=== PATIENT | female | born 1995 | race Caucasian/White ===

== ENCOUNTER → 2019-09-14 10:20 | Outpatient (BNVA) | payer OTHER, SELFPAY | PROVIDERS: Family Provider Family Medicine; PCP Orthopaedic Surgery; Referring Provider Family Medicine; Visit Provider Otolaryngology | DX: J32.9 Chronic sinusitis, unspecified (principal); J34.2 Deviated nasal septum; J34.3 Hypertrophy of nasal turbinates | CPT/HCPCS: 96372; 99214; J3301 ==

== ENCOUNTER 2019-09-14 12:25 | Outpatient (CLI) | payer OTHER, SELFPAY ==
--- NOTE | 2019-09-14 12:00 | CT_ITS ---
WS: [id number] CT PARANASAL SINUSES HISTORY: Sinusitis TECHNIQUE: Contiguous 2.5 mm axial images obtained through the sinuses. Images are reconstructed in s agittal and coronal planes. All CT scans at [facility] use at least one of these dose opt imization techniques: automated exposure control; mA and/or kV adjustment per patient size (includes targeted exams where dose is matched to clinical indication); or iterative reconstruction. DLP: 524.63 mGy.cm COMPARISON: None available. Frontal sinuses: Normal. Sphenoid sinus: Normal. Ethmoid sinuses: Mucoperiosteal thickening is mild bilaterally. Maxillary sinus: Partial bony septa present extending obliquely through the sinus cavities. No air-fl uid levels. RIGHT maxillary antrum is mildly hypoplastic. Ostiomeatal unit: The RIGHT ostiomeatal unit is slightly narrowed by the oblique septum extending int o the maxillary sinus and there is a small amount of increased soft tissue along the uncinate process . LEFT ostiomeatal unit is patent. Moderate RIGHT deviation of the nasal septum with a 5 mm bony spur extending to the RIGHT. [place] l middle turbinates. Small bilateral cervical chain lymph nodes are identified. Orbits and globes are negative. CT/CT sinus wo con* [id number] IMPRESSION: 1. Mild ethmoid sinus disease. 2. Partially obstructed RIGHT ostiomeatal unit by an oblique bony septum exten ding through the maxillary sinus. 3. Moderate RIGHT nasal septum deviation with 5 mm bony spur.
== END 2019-09-14 12:26 | disposition home or self-care (01) ==
LOC: RAD 12:28
PROVIDERS: Family Provider Family Medicine; PCP Orthopaedic Surgery; Visit Provider Otolaryngology
DX: J32.9 Chronic sinusitis, unspecified (principal); J34.89 Other specified disorders of nose and nasal sinuses
CPT/HCPCS: 70486

== ENCOUNTER → 2019-09-27 11:07 | Outpatient (BNVA) | payer OTHER, SELFPAY | PROVIDERS: Family Provider Family Medicine; PCP Orthopaedic Surgery; Visit Provider Otolaryngology | DX: J34.2 Deviated nasal septum (principal); J34.3 Hypertrophy of nasal turbinates; J32.9 Chronic sinusitis, unspecified | CPT/HCPCS: 99213; 99214 ==

== ENCOUNTER → 2020-06-19 08:59 | Outpatient (BNVA) | payer OTHER, SELFPAY | PROVIDERS: Family Provider Family Medicine; Visit Provider Internal Medicine | DX: D50.9 Iron deficiency anemia, unspecified (principal); E03.9 Hypothyroidism, unspecified; E66.01 Morbid (severe) obesity due to excess calories; Z68.42 Body mass index [BMI] 45.0-49.9, adult | CPT/HCPCS: 99204 ==

== ENCOUNTER → 2020-08-08 14:54 | Outpatient (BNVA) | payer OTHER, SELFPAY | PROVIDERS: Family Provider Family Medicine; PCP Family Medicine; Visit Provider Internal Medicine | DX: E03.8 Other specified hypothyroidism (principal) | CPT/HCPCS: 84146; 84439; 84443; 86376 ==

== ENCOUNTER → 2021-03-10 15:12 | Outpatient (BNVA) | payer OTHER, SELFPAY | PROVIDERS: Family Provider Family Medicine; PCP Family Medicine; Visit Provider Nurse Practitioner | DX: U07.1 COVID-19 (principal) | CPT/HCPCS: 87635 ==

== ENCOUNTER 2021-03-14 07:30 | Outpatient (CLI) | payer OTHER, SELFPAY ==
[2021-03-14 08:05] VITALS: BP 153/106; PULSE 87; RESP 16; TEMP 36.6; O2SAT 100
[2021-03-14 08:25] VITALS: BP 122/83; PULSE 83; RESP 16; TEMP 36.6; O2SAT 99
[2021-03-14 09:21] VITALS: BP 137/89; PULSE 85; RESP 16; TEMP 36.5; O2SAT 99
== END 2021-03-14 09:27 | disposition home or self-care (01) ==
PROVIDERS: PCP Family Medicine; Visit Provider Family Medicine
DX: U07.1 COVID-19 (principal)
CPT/HCPCS: 96365

== ENCOUNTER → 2021-04-17 15:49 | Outpatient (BNVA) | payer OTHER, SELFPAY | PROVIDERS: PCP Family Medicine; Visit Provider Family Medicine | DX: R07.9 Chest pain, unspecified (principal) | CPT/HCPCS: 85379 ==

== ENCOUNTER 2022-01-17 08:10 | Outpatient (CLI) | payer OTHER, SELFPAY ==
[2022-01-17 09:05] LABS: Alanine Aminotransferase 38 U/L (0-33); Albumin Level 4.7 g/dL (3.5-5.2); Alkaline Phosphatase 53 IU/L (35-105); Anion Gap 18.2 (5-19); Aspartate Amino Transferase 33 U/L (0-32); Blood Urea Nitrogen 9 mg/dL (6-20); Calcium 9.6 mg/dL (8.5-10.5); Carbon Dioxide 24 mmol/L (22-29); Chloride 98 mmol/L (98-107); Globulin 3.2 g/dL (1.3-4.6); Glomerular Filtration Rate 146.9 mL/min (90-130); Glucose 84 mg/dL (65-115); Lipase 23 U/L (13-60); Osmolality Calculated 280 mOsm/kg (285-295); Potassium 4.2 mmol/L (3.5-5.1); Sodium 136 mmol/L (136-145); Thyroid Stimulating Hormone 2.04 uIU/mL (0.27-4.20); Total Bilirubin 0.4 mg/dL (0.15-1.2); Total Protein 7.9 g/dL (6.6-8.7)
[2022-01-18 09:57] LABS: T4 Total 9.7 mcg/dL (5.1-11.9)
== END 2022-01-17 08:11 | disposition home or self-care (01) ==
PROVIDERS: PCP Family Medicine; Visit Provider Family Medicine
DX: Z13.220 Encounter for screening for lipoid disorders (principal)
CPT/HCPCS: 36415; 80053; 83690; 84436; 84443

== ENCOUNTER 2022-03-12 12:00 | Outpatient (CLI) | payer OTHER, SELFPAY | END 2022-03-12 12:01 | disposition home or self-care (01) | LOC: SLEEP 03-17 09:59 | PROVIDERS: PCP Family Medicine; Visit Provider Internal Medicine Cardiovascular Disease | DX: G47.10 Hypersomnia, unspecified (principal) | CPT/HCPCS: G0399 ==

== ENCOUNTER → 2022-09-04 13:42 | Outpatient (BNVA) | payer OTHER, SELFPAY | PROVIDERS: PCP Family Medicine; Visit Provider Family Medicine | DX: E03.9 Hypothyroidism, unspecified (principal); Z51.81 Encounter for therapeutic drug level monitoring | CPT/HCPCS: 80053; 84439; 84443; 85025 ==

== ENCOUNTER → 2022-10-17 12:51 | Outpatient (BNVA) | payer OTHER, SELFPAY | PROVIDERS: PCP Family Medicine; Visit Provider Family Medicine | DX: Z01.419 Encounter for gynecological examination (general) (routine) without abnormal findings (principal) | CPT/HCPCS: 87624 ==

== ENCOUNTER → 2023-01-29 15:50 | Outpatient (BNVA) | payer OTHER, SELFPAY | PROVIDERS: PCP Family Medicine; Visit Provider Internal Medicine | DX: R07.9 Chest pain, unspecified (principal) | CPT/HCPCS: 93005 ==

== ENCOUNTER → 2023-02-02 11:53 | Outpatient (BNVA) | payer OTHER, SELFPAY | PROVIDERS: PCP Family Medicine; Visit Provider Family Medicine | DX: E03.9 Hypothyroidism, unspecified (principal); E11.9 Type 2 diabetes mellitus without complications; Z51.81 Encounter for therapeutic drug level monitoring | CPT/HCPCS: 80053; 83036; 84439; 84443; 85025 ==

== ENCOUNTER 2023-06-09 14:40 | Outpatient (CLI) | payer OTHER, SELFPAY ==
--- NOTE | 2023-06-09 14:47 | XRR_ITS ---
PROCEDURE INFORMATION: Exam: XR Chest Exam date and time: 06/09/2023 3:01 PM Age: 28 years old Clinical indication: Pain; Angina pectoris; Additional info: Chest pain. No history of trauma or recent surgery is provided. TECHNIQUE: Imaging protocol: Radiologic exam of the chest. 2image(s) are provided. Views: 2 views. COMPARISON: CR XR chest 2V* [id number] 06/17/2019 11:33 PM FINDINGS: Lungs: The lung volumes are slightly low which may exaggerate the central and bronchial markings. No lobar consolidation is appreciated. Pleural spaces: No pneumothorax or significant pleural effusion is appreciated. Heart/Mediastinum: The cardiomediastinal silhouette is upper normal in size.This can be seen with central averaging as well as krista enlargement.No cardiac decompensation is appreciated. This appears slightly increased can also be seen with cardiomegaly and/or pericardial fluid. Diaphragm: There is slight asymmetric right hemidiaphragm elevation. Bones/joints: Osseous alignment is maintained.No interval displaced fracture or dislocation is appreciated. Soft tissues: No radiopaque foreign body or subcutaneous emphysema is appreciated. Other findings: No other significant interval changes are appreciated. XR/XR chest 2V* [id number] IMPRESSION: 1. No interval lobar consolidation or cardiac decompensation is appreciated. The lung volumes are slightly low however which may exaggerate the basilar bronchovascular markings. Some atelectasis as well as early peribronchial inflammation could also present in this fashion. 2. The cardiac silhouette appears slightly larger in the interval. This can also be seen with some cardiac chamber enlargement as well as pericardial fluid. If there are associated clinical findings, consider echocardiography.
== END 2023-06-09 14:41 | disposition home or self-care (01) ==
PROVIDERS: PCP Family Medicine; Visit Provider Family Medicine
DX: R07.9 Chest pain, unspecified (principal)
CPT/HCPCS: 71046

== ENCOUNTER → 2023-06-17 10:22 | Outpatient (BNVA) | payer OTHER, SELFPAY | PROVIDERS: PCP Family Medicine; Visit Provider Family Medicine | DX: E03.9 Hypothyroidism, unspecified (principal); M25.50 Pain in unspecified joint; Z51.81 Encounter for therapeutic drug level monitoring | CPT/HCPCS: 80053; 84439; 84443; 85025; 85651; 86038; 86141; 86618; 86666; 86757 ==

== ENCOUNTER 2023-06-19 07:31 | Outpatient (CLI) | payer OTHER, SELFPAY ==
--- NOTE | 2023-06-19 07:30 | USCV_ITS ---
Ariadne Mahmood Age: 28 Gender: F : 1995 Exam Date: 06/19/2023 08:01 Ordering Phys: Lui Kapoor MD Technologist: Viral Rouse Exam Location: [facility] – [place] Indication: chest pain BP: 112 / 74 HR: 65 Rhythm: Sinus Technical Quality: Adequate MEASUREMENTS (Male / Female) Normal Values 2D ECHO LVOT Diameter 2.0 cm LV Ejection Fraction MOD 2C 57.9 % LV Ejection Fraction 2C AL 58.3 % LA Diameter 4.3 cm LA Width 4.4 cm LA Height 5.0 cm RA Width 3.5 cm RA Height 4.6 cm Aorta at Sinotubular Diameter 2.2 cm IVC Diameter 1.8 cm M-MODE Aortic Annulus Diameter 2.7 cm LA Ao Ratio MM 1.5 MV E Point Septal Separation 0.7 cm DOPPLER AV Peak Velocity 117.0 cm/s LVOT Peak Velocity 82.0 cm/s AV Area Cont Eq vti 2.1 cm squared AV Area Cont Eq pk 2.2 cm squared MV Peak Velocity 108.0 cm/s MV Area PHT 4.5 cm squared Mitral E to A Ratio 0.8 MV E' Velocity 37.5 cm/s Mitral E to MV E' Ratio 4.5 Mitral E to LV E' Lateral Ratio 4.9 Mitral E to LV E' Septal Ratio 4.2 TR Peak Velocity 243.0 cm/s TR Peak Gradient 23.6 mmHg TR Mean Velocity 193.4 cm/s TR Mean Gradient 16.7 mmHg TR Velocity Time Integral 55.1 cm Right Atrial Pressure 3.0 mmHg Pulmonary Artery Systolic Pressu 26.6 mmHg PV Peak Velocity 135.7 cm/s RV Acceleration Time 0.1 s RV Ejection Time 0.3 s RV AcT/ET 0.5 FINDINGS Left Ventricle Normal left ventricular size, systolic function and wall thickness, with no regional wall motion abnormalities. Estimated ejection fraction 55 to 60%. Normal left ventricular wall thickness. Normal diastolic filling pattern. Right Ventricle The right ventricle is normal in size and function. Right Atrium The right atrium is normal in size. Left Atrium The left atrium is normal in size. Mitral Valve Structurally normal mitral valve without significant stenosis or prolapse. There is trivial mitral regurgitation. Aortic Valve Structurally normal aortic valve without significant sclerosis or stenosis. There is no aortic regurgitation. Tricuspid Valve Structurally normal tricuspid valve without significant stenosis. Mild regurgitation. Pulmonary artery systolic pressure is normal. Pulmonic Valve Structurally normal pulmonic valve without significant stenosis. There is no pulmonic regurgitation. Pericardium Normal pericardium without effusion. Aorta Normal ascending aorta dimension. IVC The inferior vena cava appears normal. CONCLUSIONS Fahad Hastings MD (Electronically Signed) Final Date: 19 June 2023 09:31 S
== END 2023-06-19 07:32 | disposition home or self-care (01) ==
PROVIDERS: PCP Family Medicine; Visit Provider Family Medicine
DX: I51.7 Cardiomegaly (principal); R07.9 Chest pain, unspecified
CPT/HCPCS: 93306

== ENCOUNTER → 2023-07-10 08:34 | Outpatient (BNVA) | payer OTHER, SELFPAY | PROVIDERS: PCP Family Medicine; Visit Provider Family Medicine | DX: Z13.220 Encounter for screening for lipoid disorders (principal) | CPT/HCPCS: 80061 ==

== ENCOUNTER 2024-01-04 09:14 | Emergency (ER) | payer OTHER, SELFPAY ==
[2024-01-04 09:35] VITALS: BP 191/111; PULSE 71; RESP 16; TEMP 36.7; O2SAT 98
[2024-01-04 09:44] LABS: Basophils # 0.1 10^3/uL (0.0-0.1); Basophils % 0.6 %; Eosinophils # 0.5 10^3/uL (0.0-0.8); Eosinophils % 4.2 %; Hematocrit 42.6 % (36-47); Lymphocytes # 2.2 10^3/uL (0.8-4.8); Lymphocytes % 19.8 %; Mean Corpuscular HGB Conc 31.2 g/dL (30-55); Mean Corpuscular Hemoglobin 25.1 pg (27-33); Mean Corpuscular Volume 80.5 fl (85-98); Mean Platelet Volume 9.4 fL (7.4-10.4); Monocytes # 0.7 10^3/uL (0.2-0.9); Monocytes % 6.7 %; Neutrophils # 7.54 10^3/uL (1.8-7.7); Neutrophils % 67.8 %; Nucleated Red Blood Cells % 0 %; Platelet Count 394 10^3/cmm (157-399); Red Blood Count 5.29 10^6/uL (3.85-5.65); Red Cell Distribution Width 14.5 % (12.1-15.1); White Blood Count 11.12 10^3/uL (3.29-11.43)
--- NOTE | 2024-01-04 09:46 | W.ED.ABDPA2 ---
HPI - Abdominal Pain General: Chief Complaint: Abdominal Pain Stated Complaint: Abd Pain radiating to back Time Seen by Provider: 01/04/24 09:40 Source: patient Mode of arrival: ambulatory Limitations: no limitations History of Present Illness: Patient is a 28-year-old female presents to ED today with complaint of epigastric pain that awoke her from sleep this morning. Patient states she woke yesterday morning with similar discomforts that seem to improve throughout the day. She states her pain this morning has been constant and more severe thus prompting her ED evaluation. She states pain radiates to her back. She has not had any vomiting. No changes in her bowel movements. She states she has not noticed any similar discomforts with eating. She does have a history of GERD and takes omeprazole for this daily. Patient states her GERD symptoms started after she was on Ozempic. She states she discontinued this medication due to unwanted GI side effects but her GERD-like symptoms have remained. She does report diarrhea after greasy/fatty meals. MD elicited complaint: abdominal pain Pertinent past history: other (GERD) Onset (ago): hour(s) Pain Consistency: constant Location: Epigastric Severity: severe Quality: aching and sharp Radiation: back Migration to: no migration Exacerbating factors: nothing Relieving factors: nothing Associated Symptoms: Reports no associated symptoms; Denies change in bowel habits, chills, GI cramping, dysuria, fever(s), hematochezia and vomiting Related Data: Patient : No Review of Systems Const: Denies: fever(s), chills, body aches, fatigue or malaise Card: Denies: chest pain Resp: Denies: dyspnea GI: Reports: abdominal pain; Denies: vomiting, GI cramping, change in bowel habits or hematochezia : Denies: flank pain, difficulty voiding, dysuria, urinary frequency, urinary urgency or urinary hesitancy Musc: Denies: neck pain, back pain, extremity pain, extremity swelling or joint pain Skin/Breast: Denies: rash Neuro: Denies: headache(s), numbness in extremities, weakness in extremities, sensory changes or dizziness PFS ED PFSH: Medical History Hypothyroidism Chronic sinusitis Nasal turbinate hypertrophy Deviated septum Surgical History History of tonsillectomy H/O knee surgery History of ankle surgery Family History Other Cancer Diabetes Hypertension Social History Smoking and tobacco/nicotine status: never used tobacco/nicotine Alcohol intake: current Alcohol intake frequency: holidays/special occasions only Substance/Drug Use: never Current occupation: Working at [employer] Physical Exam Const: COMMON NORMALS: no acute distress, patient oriented x3, no limitations, alert and well nourished GENERAL APPEARANCE: cooperative NUTRITIONAL APPEARANCE: obese morbidly obese (BMI is 50.2) ORIENTATION/CONSCIOUSNESS: Yes awake, Yes oriented to person, Yes oriented to place and Yes oriented to time Eye: COMMON NORMALS: no scleral icterus Resp: COMMON NORMALS: normal respiratory effort and clear to auscultation bilaterally AUSCULTATION: clear to auscultation bilaterally Cardio: COMMON NORMALS: regular rate and regular rhythm RATE: regular rate RHYTHM: regular rhythm GI: COMMON NORMALS: Normal to inspection, nondistended, normoactive bowel sounds present, Soft to palpation, No hepatosplenomegaly present and no masses INSPECTION: Yes normal to inspection AUSCULTATION: Yes normoactive bowel sounds PALPATION: Yes Soft to palpation, Yes Tenderness to palpation present (GI) (epigastric, RUQ), No Guarding due to palpation present (GI), No Rigid due to palpation and Yes No hepatosplenomegaly present : COMMON NORMALS: Yes no CVA tenderness BLADDER/KIDNEY EXAM: Yes no CVA tenderness Back/Pelvis: COMMON NORMALS: no CVA tenderness, thoracic and lumbar spine normal to inspection and no thoracic nor lumbar tenderness Extremity: GENERAL: Yes normal exam except as noted Neuro: COMMON NORMALS: patient oriented x3 SENSORIUM/ORIENTATION: Yes alert, Yes oriented to person, Yes oriented to place and Yes oriented to time Skin: COMMON NORMALS: no rashes or lesions noted GENERAL SKIN EXAM: no rashes or lesions noted Course Vital Signs: Vital signs: Vital Signs Temperature 98.1 F 01/04/24 09:35 Pulse Rate 95 01/04/24 10:51 Respiratory Rate 16 01/04/24 09:35 Blood Pressure 144/124 01/04/24 10:51 Pulse Oximetry 95 01/04/24 10:51 Oxygen Delivery Me thod Room Air 01/04/24 10:51 MDM - Abdominal Pain Medical Decision Making Patient here for epigastric pain that awoke her from sleep this morning. Her blood work is unremarkable at this time. Ultrasound obtained as she did have epigastric/right upper quadrant tenderness. This shows cholelithiasis without findings suggestive of acute cholecystitis. Patient did gain significant relief after GI cocktail. DDx at this time includes biliary colic, gastritis, GERD/acid reflux, PUD. She is already on a PPI daily. Will prescribe her Carafate and viscous lidocaine that she can take at home should her epigastric pain continue. I would like her to follow-up with general surgery for further evaluation of possible biliary colic and possibly obtain HIDA scan. Return to ED precautions given. Medical Records I reviewed the patient's medical records. Lab Data I reviewed the patient's lab results. 01/04/24 09:40 01/04/24 09:40 Labs/Radiology: Radiology Impressions Gallbladder Ultrasound 01/04/24 09:51 IMPRESSION: 1. Cholelithiasis without sonographic findings of acute cholecystitis. 2. Hepatic steatosis. Laboratory Results WBC 11.12 10^3/uL (3.29-11.43) 01/04/24 09:40 RBC 5.29 10^6/uL (3.85-5.65) 01/04/24 09:40 Hgb 13.30 g/dL (11.27-16.99) 01/04/24 09:40 Hct 42.6 % (36-47) 01/04/24 09:40 MCV 80.5 fl (85-98) L 01/04/24 09:40 MCH 25.1 pg (27-33) L 01/04/24 09:40 MCHC 31.2 g/dL (30-55) 01/04/24 09:40 RDW 14.5 % (12.1-15.1) 01/04/24 09:40 Plt Count 394 10^3/cmm (157-399) 01/04/24 09:40 MPV 9.4 fL (7.4-10.4) 01/04/24 09:40 Neut % (Auto) 67.8 % 01/04/24 09:40 Lymph % (Auto) 19.8 % 01/04/24 09:40 [place] % (Auto) 6.7 % 01/04/24 09:40 Eos % (Auto) 4.2 % 01/04/24 09:40 Baso % (Auto) 0.6 % 01/04/24 09:40 Neut # (Auto) 7.54 10^3/uL (1.8-7.7) 01/04/24 09:40 Lymph # (Auto) 2.2 10^3/uL (0.8-4.8) 01/04/24 09:40 [place] # (Auto) 0.7 10^3/uL (0.2-0.9) 01/04/24 09:40 Eos # (Auto) 0.5 10^3/uL (0.0-0.8) 01/04/24 09:40 Baso # (Auto) 0.1 10^3/uL (0.0-0.1) 01/04/24 09:40 Nucleated RBC % (auto) 0 % 01/04/24 09:40 Nucleated RBCs # 0.0 /100WBC 01/04/24 09:40 Sodium 138 mmol/L (136-145) 01/04/24 09:40 Potassium 4.3 mmol/L (3.5-5.1) 01/04/24 09:40 Chloride 101 mmol/L (98-107) 01/04/24 09:40 Carbon Dioxide 25 mmol/L (22-29) 01/04/24 09:40 Anion Gap 16.3 (5-19) 01/04/24 09:40 BUN 11 mg/dL (6-20) 01/04/24 09:40 Creatinine 0.6 mg/dL (0.5-0.9) 01/04/24 09:40 GFR Calculation 117.4 mL/min (90-130) 01/04/24 09:40 Glucose 101 mg/dL (65-115) 01/04/24 09:40 Calculated Osmolality 286 mOsm/kg (285-295) 01/04/24 09:40 Calcium 9.5 mg/dL (8.5-10.5) 01/04/24 09:40 Total Bilirubin 0.2 mg/dL (0.15-1.2) 01/04/24 09:40 AST 26 U/L (0-32) 01/04/24 09:40 ALT 41 U/L (0-33) H 01/04/24 09:40 Alkaline Phosphatase 62 U/L (35-105) 01/04/24 09:40 Total Protein 7.9 g/dL (6.6-8.7) 01/04/24 09:40 Albumin 4.3 g/dL (3.5-5.2) 01/04/24 09:40 Globulin 3.6 g/dL (1.3-4.6) 01/04/24 09:40 Lipase 29 U/L (13-60) 01/04/24 09:40 HCG, Qual Negative (Negative) 01/04/24 09:40 Urine Color Yellow (Yellow) 01/04/24 10:08 Urine Appearance Clear (CLEAR) 01/04/24 10:08 Urine pH 6.5 (5-7) 01/04/24 10:08 Ur Specific [place] 1.015 (1.005-1.030) 01/04/24 10:08 Urine Protein Neg (Negative) 01/04/24 10:08 Urine Glucose (UA) Norm (Normal) 01/04/24 10:08 Urine Ketones Negative (Negative) 01/04/24 10:08 Urine Blood Neg (Negative) 01/04/24 10:08 Urine Nitrate Negative (Negative) 01/04/24 10:08 Urine Bilirubin Neg (Negative) 01/04/24 10:08 Urine Urobilinogen Norm mg/dL (Negative) 01/04/24 10:08 Ur Leukocyte Esterase Negative (Negative) 01/04/24 10:08 All radiology interpretation(s) finalized by discharge Discharge Plan Discharge Patient Disposition: Home Clinical Impression: Acute epigastric pain Cholelithiasis Qualifiers: Cholelithiasis location: gallbladder Cholecystitis presence: without cholecystitis Biliary obstruction: without biliary obstruction Qualified Code(s): K80.20 - Calculus of gallbladder without cholecystitis without obstruction Condition: Stable Prescriptions: New Carafate 1 gram tablet 1 g PO TID 14 Days Qty: 42 0RF Lidocaine Viscous 2 % solution 15 ml PO QID Qty: 100 0RF Rx Instructions: Mix with water and gargle for 60 seconds, then spit No Action Zyrtec 10 mg capsule 10 mg PO DAILY fluticasone propionate [Flonase Allergy Relief] 50 mcg/actuation spray,suspension 1 spray INTRANASAL DAILY Eucrisa 2 % ointment 1 applic topical BID Qty: 100 1RF Rx Instructions: face, neck, hands and arms prn adapalene 0.3 % gel with pump 1 applic topical DAILY Qty: 45 4RF Rx Instructions: Apply a pea-sized amount to clean dry face nightly (differin with pump) (DME) Auto-Tirtating CPAP 6-16cm See Rx Instructions .Route .MEDSUPPLY Qty: 1 0RF Rx Instructions: Auto-titrating CPAP 6-16 cm H2O levothyroxine [Synthroid] 88 mcg tablet 88 mcg PO DAILY Qty: 90 3RF Rx Instructions: Brand name only buspirone 5 mg tablet 5 mg PO TID PRN (Reason: anxiety) Qty: 90 6RF omeprazole 40 mg capsule,delayed release(DR/EC) 40 mg PO DAILY Qty: 30 6RF clobetasol 0.05 % cream See Rx Instructions .ROUTE .COMPLEX Rx Instructions: DIRECTED metoprolol succinate 25 mg tablet extended release 24 hr 25 mg PO DAILY hydrocortisone 2.5 % ointment 1 applic topical BID PRN (Reason: Itching) Rx Instructions: May apply BID to affected areas on face no more than 2 weeks/mo alt w/ protopic sertraline 50 mg tablet 50 mg PO DAILY Rx Instructions: TAKE 1 TABLET BY MOUTH DAILY Discharge Orders: Discharge ED (Routine); Ordered 01/04/24 Ordered By: Parris Adhiakri Referrals: Lui Kapoor MD [Primary Care Provider] - Patient Instructions: Gallstones (ED), Abdominal Pain (ED) Activity Restrictions/Additional Instructions: As we discussed your blood work was unremarkable. Your gallbladder ultrasound did show several gallstones but the gallbladder did not look acutely infected or inflamed. You did get significant relief following the GI cocktail. You can continue your omeprazole at home. I have given you prescriptions for Carafate as well as the viscous lidocaine that you may take simultaneously to help with your epigastric discomfort should it return. As we discussed I will refer you to general surgery for further evaluation of your cholelithiasis/gallstones as this could also be an etiology for your discomfort (i.e. biliary colic). You need to return to the emergency department for worsening or intractable abdominal pain, vomiting, diarrhea, yellowing to your skin or eyes, fevers, generally feeling worse or unwell, or any other concerns you may have. I hope you begin to feel better soon. Coding Level of Care Code ED [employer] for Brii Sommers
--- NOTE | 2024-01-04 09:51 | USR_ITS ---
PROCEDURE INFORMATION: Exam: US Abdomen, Limited; Right Upper Quadrant Exam date and time: 01/04/2024 10:16 AM Age: 28 years old Clinical indication: Abdominal pain; Epigastric; Additional info: Epigastric, ruq pain TECHNIQUE: Imaging protocol: Real time ultrasound of the abdomen with image documentation. Limited exam focused on the right upper quadrant. COMPARISON: No relevant prior studies available. FINDINGS: Liver: Diffusely increased echogenicity of the liver parenchyma. No masses. Gallbladder: Shadowing gallstone measuring 1.4 cm noted in the gallbladder. There is no gallbladder wall thickening. Biliary ducts: Normal. No stones. No dilation. Pancreas: Visualized pancreas is unremarkable. Right kidney: Right kidney measures 11.5 cm in length. No mass. No hydronephrosis. US/US gall bladder [id number] IMPRESSION: 1. Cholelithiasis without sonographic findings of acute cholecystitis. 2. Hepatic steatosis.
[2024-01-04 10:05] LABS: Alanine Aminotransferase 41 U/L (0-33); Albumin Level 4.3 g/dL (3.5-5.2); Alkaline Phosphatase 62 U/L (35-105); Anion Gap 16.3 (5-19); Aspartate Amino Transferase 26 U/L (0-32); Blood Urea Nitrogen 11 mg/dL (6-20); Calcium 9.5 mg/dL (8.5-10.5); Carbon Dioxide 25 mmol/L (22-29); Chloride 101 mmol/L (98-107); Creatinine Clr Calc Pharmacy 212.5697; Globulin 3.6 g/dL (1.3-4.6); Glomerular Filtration Rate 117.4 mL/min (90-130); Glucose 101 mg/dL (65-115); HCG, Serum Qual Negative (Negative); Lipase 29 U/L (13-60); Osmolality Calculated 286 mOsm/kg (285-295); Potassium 4.3 mmol/L (3.5-5.1); Sodium 138 mmol/L (136-145); Total Bilirubin 0.2 mg/dL (0.15-1.2); Total Protein 7.9 g/dL (6.6-8.7)
[2024-01-04 10:14] VITALS: BP 172/89; PULSE 72; O2SAT 98
[2024-01-04] MEDS: lidocaine 2% viscous 15 ML, aluminum-mag hydrox-simethicon 30 ML, sucralfate oral liq 1 GM PO (10:23)
[2024-01-04 10:29] LABS: Add Urine Microscopic? NO; Charge for UA Resulting for Rev
[2024-01-04 10:39] LABS: Bilirubin Urine Neg (Negative); Blood Urine Neg (Negative); Glucose Urine UA Norm (Normal); Ketones Urine Negative (Negative); Leukocyte Esterase Urine Negative (Negative); Nitrate Urine Negative (Negative); Protein Urine Neg (Negative); Specific Gravity, Urine 1.015 (1.005-1.030); Urine Appearance Clear (CLEAR); Urine Color Yellow (Yellow); Urobilinogen Urine Norm (Negative); pH Urine 6.5 (5-7)
[2024-01-04] MEDS: metoprolol succinate ER (24 HR) 25 mg Tablet PO (10:50)
[2024-01-04 10:51] VITALS: BP 144/124; PULSE 95; O2SAT 95
[2024-01-04 11:19] VITALS: BP 144/124; PULSE 95; RESP 16; TEMP 36.7; O2SAT 95
--- NOTE | 2024-01-04 13:21 | DCPLANNER ---
message sent to gen surg for er f/u
== END 2024-01-04 11:19 | disposition home or self-care (01) ==
PROVIDERS: Emergency Provider Physician Assistant; PCP Family Medicine
DX: K80.20 Calculus of gallbladder without cholecystitis without obstruction (principal); R10.13 Epigastric pain
CPT/HCPCS: 36415; 76705; 80053; 81003; 83690; 84703; 85025; 99284

== ENCOUNTER 2024-01-19 07:39 | Outpatient (CLI) | payer OTHER, SELFPAY ==
--- NOTE | 2024-01-19 08:00 | NM_ITS ---
WS: [id number] NUCLEAR MEDICINE HIDA SCAN WITH GALLBLADDER EJECTION FRACTION HISTORY: RUQ pain COMPARISON: 01/04/2024 TECHNIQUE: The patient was intravenously injected with 7.4 mCi of TC99m Mebrofenin. Immediate imaging over the right upper quadrant was followed by 5 minute image and additional images for a total of 60 minutes. Normal uptake of radiotracer throughout the liver. Activity identified in the gallbladder at 30 minutes and well distended by 60 minutes. Activity in the proximal small bowel was seen by 10 minutes. Good washout of the radiotracer from the liver by 60 minutes. The patient then drank 8 ounces of Ensure Plus. Ejection fraction at 60 minutes was 66%. Normal GB ej ection fraction is 35-75%. Post fatty meal symptoms: None. NM/NM hepatobiliary w phar* [id number] IMPRESSION: 1. Normal HIDA scan. 2. Normal gallbladder ejection fraction.
== END 2024-01-19 07:40 | disposition home or self-care (01) ==
LOC: RAD 07:39
PROVIDERS: PCP Family Medicine; Visit Provider Family Medicine
DX: K80.20 Calculus of gallbladder without cholecystitis without obstruction (principal); R10.11 Right upper quadrant pain
CPT/HCPCS: 78227; A9537

== ENCOUNTER → 2024-03-24 10:45 | Outpatient (BNVA) | payer OTHER, SELFPAY | PROVIDERS: PCP Family Medicine; Visit Provider Internal Medicine | DX: E03.8 Other specified hypothyroidism (principal); E66.01 Morbid (severe) obesity due to excess calories; Z68.42 Body mass index [BMI] 45.0-49.9, adult; D50.8 Other iron deficiency anemias; Z34.90 Encounter for supervision of normal pregnancy, unspecified, unspecified trimester | CPT/HCPCS: 36415; 83036; 84403; 84702 ==

== ENCOUNTER 2024-04-01 15:42 | Outpatient (CLI) | payer OTHER, SELFPAY ==
--- NOTE | 2024-04-01 16:00 | US_ITS ---
WS: [id number] US pelv w/transvag [id number] HISTORY: Amenorrhea COMPARISON: None available. Uterus: 7.2 cm x 4.2 cm x 3.8 cm. Normal size anteverted uterus. No fibroid or mass. Endometrium: 0.7 cm. Normal. Right ovary: 3.0 cm x 2.6 cm x 1.8 cm. Normal size and vascularity, no cystic or solid masses. A few small follicles are noted. Left ovary: 2.6 cm x 1.8 cm x 2.3 cm. Normal size and vascularity, no cystic or solid masses. A few s mall follicles are noted. No free fluid in the cul-de-sac. US/US pelv w/transvag [id number] IMPRESSION: Normal pelvic ultrasound. No evidence for PCOS.
== END 2024-04-01 15:43 | disposition home or self-care (01) ==
PROVIDERS: PCP Family Medicine; Visit Provider Family Medicine
DX: N91.2 Amenorrhea, unspecified (principal)
CPT/HCPCS: 36415; 76830; 76856; 83036; 84403; 84702

== ENCOUNTER → 2024-04-06 08:50 | Outpatient (BNVA) | payer OTHER, SELFPAY | PROVIDERS: PCP Family Medicine; Visit Provider Nurse Practitioner Family | DX: R00.1 Bradycardia, unspecified (principal); I49.8 Other specified cardiac arrhythmias | CPT/HCPCS: 93005 ==

== ENCOUNTER 2024-04-06 09:23 | Outpatient (CLI) | payer OTHER, SELFPAY ==
[2024-04-06 10:45] LABS: Cholesterol 227 mg/dL (0-200); Free T4 Free Thyroxine 1.06 ng/dL (0.82-1.77); HDL Cholesterol 42 mg/dL (60-100); LDL Cholesterol Calculated 148 mg/dL (50-129); LDL HDL Ratio 3.52 RATIO (0.00-3.22); Thyroid Stimulating Hormone 2.58 uIU/mL (0.27-4.20); Triglycerides 183 mg/dL (0-150)
== END 2024-04-06 09:24 | disposition home or self-care (01) ==
LOC: LAB 09:24
PROVIDERS: PCP Family Medicine; Visit Provider Internal Medicine
DX: E03.8 Other specified hypothyroidism (principal); E28.2 Polycystic ovarian syndrome
CPT/HCPCS: 36415; 80061; 84439; 84443

== ENCOUNTER 2024-04-14 16:56 | Outpatient (CLI) | payer OTHER, SELFPAY ==
[2024-04-14 17:14] LABS: Basophils # 0.1 10^3/uL (0.0-0.1); Basophils % 0.7 %; Eosinophils # 0.6 10^3/uL (0.0-0.8); Eosinophils % 5.4 %; Hematocrit 40.1 % (36-47); Lymphocytes # 2.4 10^3/uL (0.8-4.8); Mean Corpuscular HGB Conc 31.9 g/dL (30-55); Mean Corpuscular Volume 78.2 fl (85-98); Mean Platelet Volume 9.8 fL (7.4-10.4); Monocytes # 0.9 10^3/uL (0.2-0.9); Monocytes % 8.1 %; Neutrophils # 6.55 10^3/uL (1.8-7.7); Neutrophils % 62.3 %; Nucleated Red Blood Cells % 0 %; Platelet Count 412 10^3/cmm (157-399); Red Blood Count 5.13 10^6/uL (3.85-5.65); Red Cell Distribution Width 15.2 % (12.1-15.1); White Blood Count 10.51 10^3/uL (3.29-11.43)
[2024-04-14 17:30] LABS: Carbon Dioxide 28 mmol/L (22-29); Chloride 100 mmol/L (98-107); Potassium 3.7 mmol/L (3.5-5.1); Sodium 140 mmol/L (136-145)
[2024-04-14 17:31] LABS: Alanine Aminotransferase 47 U/L (0-33); Albumin Level 4.6 g/dL (3.5-5.2); Alkaline Phosphatase 63 U/L (35-105); Anion Gap 15.7 (5-19); Aspartate Amino Transferase 31 U/L (0-32); Blood Urea Nitrogen 12 mg/dL (6-20); Calcium 9.4 mg/dL (8.5-10.5); Globulin 3.3 g/dL (1.3-4.6); Glomerular Filtration Rate 144.9 mL/min (90-130); Glucose 86 mg/dL (65-115); Osmolality Calculated 289 mOsm/kg (285-295); Total Bilirubin 0.2 mg/dL (0.15-1.2); Total Protein 7.9 g/dL (6.6-8.7)
== END 2024-04-14 16:57 | disposition home or self-care (01) ==
PROVIDERS: PCP Family Medicine; Visit Provider Internal Medicine Cardiovascular Disease
DX: I10 Essential (primary) hypertension (principal); I51.7 Cardiomegaly; R07.9 Chest pain, unspecified; R00.2 Palpitations; R53.83 Other fatigue
CPT/HCPCS: 36415; 80053; 85025

== ENCOUNTER 2024-04-15 18:41 | Emergency (ER) | payer OTHER, SELFPAY ==
[2024-04-15 18:52] VITALS: BP 187/115; PULSE 68; RESP 16; TEMP 36.5; O2SAT 100; BMI 50.7
[2024-04-15 19:23] VITALS: BP 145/82; BP 147/88; BP 153/91; PULSE 54; PULSE 62; PULSE 84
--- NOTE | 2024-04-15 19:31 | XRR_ITS ---
PROCEDURE INFORMATION: Exam: XR Chest Exam date and time: 04/15/2024 7:36 PM Age: 28 years old Clinical indication: Other: Bradycardia; Additional info: Hypotension/dizzy/lightheaded TECHNIQUE: Imaging protocol: Radiologic exam of the chest. Views: 1 view. COMPARISON: CR XR chest 2V* [id number] 06/09/2023 3:01 PM FINDINGS: Lungs: Clear, symmetrically inflated lungs. Pleural spaces: No pleural effusion. No pneumothorax. Heart/Mediastinum: Heart size is normal with stable prominence of the left ventricular contour. Bones/joints: Age appropriate. XR/XR chest 1V portable [id number] IMPRESSION: No acute cardiopulmonary abnormality.
--- NOTE | 2024-04-15 19:32 | ECG_ITS ---
[facility] Test Date: 2024-04-15 Pat Name: Ariadne Mahmood Department: Room: Gender: Female Slot Router: : 1995 Requested By: Arvind Casarez Order Number: [id number] Teresa MD: JACOB NEELY Measurements Intervals [place] Rate: 61 P: 15 WI: 177 QRS: -4 QRSD: 99 T: -4 QT: 404 QTc: 407 Interpretive Statements SINUS RHYTHM INCOMPLETE RIGHT BUNDLE BRANCH BLOCK [90+ ms QRS DURATION, TERMINAL R IN V1/V2, 40+ ms S IN I/aVL/V4/V5/V6] VOLTAGE CRITERIA FOR LVH [MEETS CRITERIA IN ONE OF: R(aVL), S(V1), R(V5), R(V5/V6)+S(V1)] POSSIBLE ANTERIOR MYOCARDIAL INFARCTION , OF INDETERMINATE AGE [30 ms Q WAVE IN V3/V4, OR R < 0.2 mV IN V4] Compared to ECG 04/06/2024 08:55:40 Incomplete right bundle-branch block now present Myocardial infarct finding now present Sinus arrhythmia no longer present T-wave abnormality no longer present Electronically Signed On 04-17-2024 18:54:39 CDT by JACOB NEELY [id number]
[2024-04-15 19:39] VITALS: BP 153/93; PULSE 69; RESP 16; O2SAT 98
--- NOTE | 2024-04-15 19:40 | ED_ITS ---
HPI - Recheck/Abnormal Lab/Rx 2 General: Chief Complaint: Recheck/Abnormal Lab/Rx Stated Complaint: sent by Dr. Menard hr drop into 40's Time Seen by Provider: 04/15/24 19:18 Source: patient Mode of arrival: ambulatory Limitations: no limitations History of Present Illness: Patient is a 28-year-old female presenting to the emergency department complaining of bradycardia onset today. Patient states she noticed on her symptoms smart watch that her heart rate was dropping into the 40s. Reports pertinent history of seeing cardiology for heart rate issues following a COVID infection years ago. Today it was her cloth colors examiner who referred her to the emergency department after noting varying heart rates. She states that is also ran high in the past, but lately she has also been having some lightheadedness, dizziness, and chest pain radiating into her back and up to her jaw. Denies any personal history of heart attacks or strokes. Denies any immediate family cardiac history at an early age. Denies any syncopal episodes, and actually states that her dizziness is worse with lying flat. She arrives with elevated blood pressure over 187/115, states she takes metoprolol and was just under isosorbide for probable cardiac spasms. MD complaint: other (bradycardia) Related Data Home Medications Medication Instructions Recorded Confirmed cetirizine 10 mg capsule (Zyrtec) 10 mg PO DAILY 09/14/19 03/25/24 fluticasone propionate 50 1 spray intranasal DAILY 09/14/19 03/25/24 mcg/actuation nasal spray,suspension (Flonase Allergy Relief) clobetasol 0.05 % topical cream See Rx Instructions .Route .COMPLEX 01/04/24 03/25/24 hydrocortisone 2.5 % topical 1 applic topical BID PRN Itching 01/04/24 03/25/24 ointment metformin 500 mg tablet,extended 1,000 mg PO DAILY 04/12/24 release 24 hr Previous Rx's Medication Instructions Recorded crisaborole 2 % topical ointment 1 applic topical BID #100 grams 01/16/21 (Eucrisa) cpap #1 ea 04/10/22 adapalene 0.3 % topical gel with 1 applic topical DAILY #45 grams 08/29/22 pump Synthroid 88 mcg tablet 88 mcg PO DAILY #90 tabs 04/21/23 (levothyroxine) buspirone 5 mg tablet 5 mg PO TID PRN anxiety #90 tabs 08/26/23 omeprazole 40 mg capsule,delayed 40 mg PO DAILY #30 caps 12/14/23 release lidocaine HCl 2 % mucosal solution 15 ml PO QID #100 mL 01/04/24 (Lidocaine Viscous) medroxyprogesterone 10 mg tablet 10 mg PO DAILY #10 tabs 03/24/24 isosorbide dinitrate 30 mg tablet 15 mg (1/2 x 30 mg) PO BID #90 tabs 04/12/24 metoprolol succinate 25 mg 12.5 mg (1/2 x 25 mg) PO DAILY 04/12/24 tablet,extended release 24 hr #135 tabs nitroglycerin 0.4 mg sublingual 0.4 mg sublingual Q5M PRN chest 04/12/24 tablet pain #25 tabs citalopram 10 mg tablet 10 mg PO DAILY #30 tabs 04/15/24 ferrous sulfate 325 mg (65 mg 325 mg PO DAILY #30 tabs 04/15/24 iron) tablet,delayed release nifedipine 30 mg tablet,extended 30 mg PO DAILY #30 tabs 04/15/24 release Allergies Allergy/AdvReac Type Severity Reaction Status Date / Time No Known Allergies Allergy Verified 01/20/23 11:37 Review of Systems 2 General: Reports: 10 or more systems reviewed and unremarkable except in HPI and below Const: Denies: fever(s), chills or fatigue Eyes: Denies: change in vision ENMT: Denies: throat pain, ear or mastoid pain or nasal discharge Card: Reports: chest pain, lightheadedness and other (bradycardia); Denies: palpitations or swelling of feet/ankles Resp: Denies: dyspnea, productive cough or wheezing GI: Denies: abdominal pain, nausea, vomiting, diarrhea or constipation : Denies: flank pain, difficulty voiding, dysuria or urinary frequency Musc: Reports: back pain; Denies: neck pain or joint pain Skin/Breast: Denies: rash Neuro: Reports: dizziness; Denies: headache(s), numbness in extremities or weakness in extremities PFSH ED 2 PFSH: Medical History Hypothyroidism Chronic sinusitis Nasal turbinate hypertrophy Deviated septum Surgical History History of tonsillectomy H/O knee surgery History of ankle surgery Family History Other Cancer Diabetes Hypertension Social History Smoking and tobacco/nicotine status: never used tobacco/nicotine Alcohol intake: current Alcohol intake frequency: holidays/special occasions only Substance/Drug Use: never Current occupation: Working at [employer] Physical Exam 2 Const: COMMON NORMALS: no acute distress, patient oriented x3 and no limitations GENERAL APPEARANCE: cooperative, comfortable and well developed NUTRITIONAL APPEARANCE: obese morbidly obese ORIENTATION/CONSCIOUSNESS: Yes awake, Yes oriented to person, Yes oriented to place and Yes oriented to time HENMT: COMMON NORMALS: normocephalic, atraumatic and hearing grossly normal bilaterally HEAD & SCALP: normocephalic and atraumatic Eye: COMMON NORMALS: Equal, round and reactive pupils present, EOMs intact bilaterally and conjunctivae normal CONJUNCTIVA: Yes conjunctivae normal P UPIL: Yes Equal, round and reactive pupils present Neck/C-Spine: COMMON NORMALS: full ROM, supple and no JVD Resp: COMMON NORMALS: normal respiratory effort, No retractions, No use of accessory muscles and clear to auscultation bilaterally AUSCULTATION: clear to auscultation bilaterally Cardio: COMMON NORMALS: no JVD, regular rate, regular rhythm, No clicks present (Cardio), No murmurs present (Cardio) and No rub (Cardio) RATE: r egular rate RHYTHM: regular rhythm GI: COMMON NORMALS: Normal to inspection, nondistended, normoactive bowel sounds present, Soft to palpation and non-tender AUSCULTATION: Yes normoactive bowel sounds PALPATION: Yes Soft to palpation RECTAL EXAM: d eferred Extremity: COMMON NORMALS: normal to inspection, full ROM and capillary refill normal Neuro: COMMON NORMALS: patient oriented x3, moves all extremities, no focal motor deficits and no sensory deficits noted SENSORIUM/ORIENTATION: Yes oriented to person, Yes oriented to place and Yes oriented to time Skin: COMMON NORMALS: no rashes or lesions noted GENERAL SKIN EXAM: no rashes or lesions noted Course 2 Vital Signs: Vital signs: Vital Signs Temperature 97.7 F 04/15/24 18:52 Pulse Rate 66 04/15/24 21:48 Respiratory Rate 13 04/15/24 21:48 Blood Pressure 144/94 04/15/24 21:48 Pulse Oximetry 97 04/15/24 21:48 Oxygen Delivery Me thod Room Air 04/15/24 21:26 MDM - Recheck/Abnormal Lab/Rx Medical Decision Making Patient was referred to the emergency department by cloth colors examiner for evaluation of recorded heart rate resting in the high 40s and low 50s. Patient reported to me a history of tachycardia following COVID infection, where she was first established with cardiology, currently is having her metoprolol switched to a calcium channel andreas and was started on isosorbide for reported cardiac spasms. She was reporting some chest pain as well. A chest x-ray was normal. Initial EKG reviewed with Dr. Casarez did not reveal any acute STEMI, showed normal sinus rhythm rate of 61. Throughout her ED stay, her heart rate has been noted to be consistently above 60. Lab work was all unremarkable including a negative troponin and -2-hour troponin. Urinalysis was normal, and urine normal. Being that she recently was stopped on metoprolol, it is entirely likely that her beta-andreas was causing a drop in heart rate. She is switching this already as planned, and I did inform her to continue her follow-ups specifically with cardiology to see if they want to do any outpatient echocardiogram or stress testing. At this time patient is asymptomatic and is ready for discharge home. Lab Data 04/15/24 19:31 04/15/24 19:31 Radiology Impressions Chest X-Ray 04/15/24 19:31 IMPRESSION: No acute cardiopulmonary abnormality. Laboratory Results WBC 10.27 10^3/uL (3.29-11.43) 04/15/24 19:31 RBC 5.14 10^6/uL (3.85-5.65) 04/15/24 19:31 Hgb 12.70 g/dL (11.27-16.99) 04/15/24 19:31 Hct 41.0 % (36-47) 04/15/24 19:31 MCV 79.8 fl (85-98) L 04/15/24 19: MCH 24.7 pg (27-33) L 04/15/24 19:31 MCHC 31.0 g/dL (30-55) 04/15/24 19:31 RDW 15.4 % (12.1-15.1) H 04/15/24 19:31 Plt Count 426 10^3/cmm (157-399) H 04/15/24 19:31 MPV 9.9 fL (7.4-10.4) 04/15/24 19:31 Neut % (Auto) 62.9 % 04/15/24 19:31 Lymph % (Auto) 25.4 % 04/15/24 19:31 [place] % (Auto) 6.5 % 04/15/24 19:31 Eos % (Auto) 4.3 % 04/15/24 19:31 Baso % (Auto) 0.5 % 04/15/24: Neut # (Auto) 6.46 10^3/uL (1.8-7.7) 04/15/24 19:31 Lymph # (Auto) 2.6 10^3/uL (0.8-4.8) 04/15/24 19:31 [place] # (Auto) 0.7 10^3/uL (0.2-0.9) 04/15/24 19:31 Eos # (Auto) 0.4 10^3/uL (0.0-0.8) 04/15/24: Baso # (Auto) 0.1 10^3/uL (0.0-0.1) 04/15/24 19:31 Nucleated RBC % (auto) 0 % 04/15/24: Nucleated RBCs # 0.0 /100WBC 04/15/24 19:31 Sodium 140 mmol/L (136-145) 04/15/24 19:31 Potassium 4.1 mmol/L (3.5-5.1) 04/15/24:31 Chloride 102 mmol/L (98-107) 04/15/24 19: Carbon Dioxide 25 mmol/L (22-29) 04/15/24 19:31 Anion Gap 17.1 (5-19) 04/15/24:31 BUN 10 mg/dL (6-20) 04/15/24:31 Creatinine 0.5 mg/dL (0.5-0.9) 04/15/24 19:31 GFR Calculation 144.9 mL/min (90-130) H 04/15/24 19:31 Glucose 92 mg/dL (65-115) 04/15/24 19:31 Calculated Osmolality 289 mOsm/kg (285-295) 04/15/24 19:31 Calcium 9.5 mg/dL (8.5-10.5) 04/15/24 19:31 Total Bilirubin 0.2 mg/dL (0.15-1.2) 04/15/24 19:31 AST 29 U/L (0-32) 04/15/24 19:31 ALT 44 U/L (0-33) H 04/15/24 19:31 Alkaline Phosphatase 66 U/L (35-105) 04/15/24 19:31 Troponin T Baseline < 6 ng/L (0-10) 04/15/24 19:31 Troponin T 120 Minute 6.00 ng/L (0-10) 04/15/24 21:02 Delta Troponin T 0.70773 ABS# (0-10) 04/15/24 21:02 Total Protein 7.8 g/dL (6.6-8.7) 04/15/24 19:31 Albumin 4.5 g/dL (3.5-5.2) 04/15/24 19:31 Globulin 3.3 g/dL (1.3-4.6) 04/15/24 19:31 HCG, Qual Negative (Negative) 04/15/24 19:58 Urine Color Yellow (Yellow) 04/15/24 19:58 Urine Appearance Clear (CLEAR) 04/15/24 19:58 Urine pH 6 (5-7) 04/15/24 19:58 Ur Specific [place] 1.010 (1.005-1.030) 04/15/24 19:58 Urine Protein Neg (Negative) 04/15/24 19:58 Urine Glucose (UA) Norm (Normal) 04/15/24 19:58 Urine Ketones Negative (Negative) 04/15/24 19:58 Urine Blood Neg (Negative) 04/15/24 19:58 Urine Nitrate Negative (Negative) 04/15/24 19:58 Urine Bilirubin Neg (Negative) 04/15/24 19:58 Urine Urobilinogen 0.2 mg/dL (Negative) 04/15/24 19:58 Ur Leukocyte Esterase Negative (Negative) 04/15/24 19:58 Amorphous Sediment Not Reportable 04/15/24 19:58 All radiology interpretation(s) finalized by discharge Discharge Plan Discharge Patient Disposition: Home Clinical Impression: Bradycardia Condition: Stable Prescriptions: No Action Zyrtec 10 mg capsule 10 mg PO DAILY fluticasone propionate [Flonase Allergy Relief] 50 mcg/actuation spray,suspension 1 spray INTRANASAL DAILY Eucrisa 2 % ointment 1 applic topical BID Qty: 100 1RF Rx Instructions: face, neck, hands and arms prn citalopram 10 mg tablet 10 mg PO DAILY Qty: 30 3RF nifedipine 30 mg tablet extended release 30 mg PO DAILY Qty: 30 2RF ferrous sulfate 325 mg (65 mg iron) tablet,delayed release (DR/EC) 325 mg PO DAILY Qty: 30 3RF adapalene 0.3 % gel with pump 1 applic topical DAILY Qty: 45 4RF Rx Instructions: Apply a pea-sized amount to clean dry face nightly (differin with pump) medroxyprogesterone 10 mg tablet 10 mg PO DAILY Qty: 10 0RF metformin 500 mg tablet extended release 24 hr 1,000 mg PO DAILY isosorbide dinitrate 30 mg tablet 15 mg PO BID Qty: 90 3RF Rx Instructions: allow nitrate-free interval of 12-14 hrs per 24-hr period nitroglycerin 0.4 mg tablet, sublingual 0.4 mg sublingual Q5M PRN (Reason: chest pain) Qty: 25 3RF Rx Instructions: do not exceed 3 doses per episode metoprolol succinate 25 mg tablet extended release 24 hr 12.5 mg PO DAILY Qty: 135 3RF Hold Instructions: Possible side effect (DME) Auto-Tirtating CPAP 6-16cm See Rx Instructions .Route .MEDSUPPLY Qty: 1 0RF Rx Instructions: Auto-titrating CPAP 6-16 cm H2O levothyroxine [Synthroid] 88 mcg tablet 88 mcg PO DAILY Qty: 90 3RF Rx Instructions: Brand name only buspirone 5 mg tablet 5 mg PO TID PRN (Reason: anxiety) Qty: 90 6RF omeprazole 40 mg capsule,delayed release(DR/EC) 40 mg PO DAILY Qty: 30 6RF clobetasol 0.05 % cream See Rx Instructions .ROUTE .COMPLEX Rx Instructions: DIRECTED hydrocortisone 2.5 % ointment 1 applic topical BID PRN (Reason: Itching) Rx Instructions: May apply BID to affected areas on face no more than 2 weeks/mo alt w/ protopic Lidocaine Viscous 2 % solution 15 ml PO QID Qty: 100 0RF Rx Instructions: Mix with water and gargle for 60 seconds, then spit Discharge Orders: Discharge ED (Routine); Ordered 04/15/24 Ordered By: Davie Hdez Referrals: Lui Kapoor MD [Primary Care Provider] - Discharge Diet: Usual diet Discharge Activity: Increase activity as tolerated Patient Instructions: Bradycardia (ED) Activity Restrictions/Additional Instructions: Follow-up with primary care and/or your cloth colors examiner as discussed. Continue taking your medications as directed by your cloth colors examiner. Return with any new or worsening symptoms. Coding Level of Care Code ED Wheelchair Van Operator First Responder for Brii Sommers
[2024-04-15 19:51] LABS: Basophils # 0.1 10^3/uL (0.0-0.1); Basophils % 0.5 %; Eosinophils # 0.4 10^3/uL (0.0-0.8); Eosinophils % 4.3 %; Lymphocytes # 2.6 10^3/uL (0.8-4.8); Lymphocytes % 25.4 %; Mean Corpuscular Hemoglobin 24.7 pg (27-33); Mean Corpuscular Volume 79.8 fl (85-98); Mean Platelet Volume 9.9 fL (7.4-10.4); Monocytes # 0.7 10^3/uL (0.2-0.9); Monocytes % 6.5 %; Neutrophils # 6.46 10^3/uL (1.8-7.7); Neutrophils % 62.9 %; Nucleated Red Blood Cells % 0 %; Platelet Count 426 10^3/cmm (157-399); Red Blood Count 5.14 10^6/uL (3.85-5.65); Red Cell Distribution Width 15.4 % (12.1-15.1); White Blood Count 10.27 10^3/uL (3.29-11.43)
[2024-04-15 20:01] LABS: Alanine Aminotransferase 44 U/L (0-33); Albumin Level 4.5 g/dL (3.5-5.2); Alkaline Phosphatase 66 U/L (35-105); Anion Gap 17.1 (5-19); Aspartate Amino Transferase 29 U/L (0-32); Blood Urea Nitrogen 10 mg/dL (6-20); Calcium 9.5 mg/dL (8.5-10.5); Carbon Dioxide 25 mmol/L (22-29); Chloride 102 mmol/L (98-107); Creatinine Clr Calc Pharmacy 248.6726; Globulin 3.3 g/dL (1.3-4.6); Glomerular Filtration Rate 144.9 mL/min (90-130); Glucose 92 mg/dL (65-115); Osmolality Calculated 289 mOsm/kg (285-295); Potassium 4.1 mmol/L (3.5-5.1); Sodium 140 mmol/L (136-145); Total Bilirubin 0.2 mg/dL (0.15-1.2); Total Protein 7.8 g/dL (6.6-8.7)
[2024-04-15 20:08] LABS: Charge for UA Resulting for Rev
[2024-04-15 20:14] LABS: Troponin(5th) Baseline < 6 ng/L (0-10)
[2024-04-15 20:20] LABS: Bilirubin Urine Neg (Negative); Blood Urine Neg (Negative); Glucose Urine UA Norm (Normal); Ketones Urine Negative (Negative); Leukocyte Esterase Urine Negative (Negative); Nitrate Urine Negative (Negative); Protein Urine Neg (Negative); Urine Appearance Clear (CLEAR); Urine Color Yellow (Yellow); Urobilinogen Urine 0.2 mg/dL (Negative); pH Urine 6 (5-7)
[2024-04-15 21:16] LABS: HCG Qualitative Urine. Negative (Negative)
[2024-04-15 21:26] VITALS: BP 158/99; PULSE 66; RESP 14; O2SAT 99
[2024-04-15 21:31] LABS: Troponin 5 2HR Delta 0.00001 ABS# (0-10)
--- NOTE | 2024-04-15 21:32 | ECG_ITS ---
[facility] Test Date: 2024-04-16 Pat Name: Ariadne Mahmood Department: Room: Gender: Female Low Voltage Electrician: : 1995 Requested By: Davie Herrmann Order Number: [id number] Teresa MD: JACOB NEELY Measurements Intervals [place] Rate: 67 P: 39 WY: 159 QRS: -25 QRSD: 94 T: 61 QT: 434 QTc: 461 Interpretive Statements SINUS RHYTHM LOW QRS VOLTAGE IN PRECORDIAL LEADS [QRS DEFLECTION < 1.0 mV IN CHEST LEADS] POSSIBLE ANTERIOR MYOCARDIAL INFARCTION , PROBABLY OLD [30 ms Q WAVE IN V3/V4, OR R < 0.2 mV IN V4] Compared to ECG 04/15/2024 19:32:15 Low QRS voltage now present Incomplete right bundle-branch block no longer present Left ventricular hypertrophy no longer present Myocardial infarct finding still present Electronically Signed On 04-17-2024 18:58:01 CDT by JACOB NEELY [id number]
[2024-04-15 21:48] VITALS: BP 144/94; PULSE 66; RESP 13; O2SAT 97
== END 2024-04-15 21:47 | disposition home or self-care (01) ==
PROVIDERS: Emergency Provider Physician Assistant; PCP Family Medicine
DX: R00.1 Bradycardia, unspecified (principal); Z79.84 Long term (current) use of oral hypoglycemic drugs
CPT/HCPCS: 36415; 71045; 80053; 81003; 81015; 81025; 84484; 85025; 93005; 99285

== ENCOUNTER 2024-04-18 12:44 | Outpatient (CLI) | payer OTHER, SELFPAY ==
[2024-04-18 13:42] LABS: Estradiol 49.3 pg/mL; Follicle Stimulating Hormone 5.4 mIU/mL; Luteinizing Hormone 7.9 mIU/mL (0.5-41.7)
== END 2024-04-18 12:45 | disposition home or self-care (01) ==
LOC: LAB 12:46
PROVIDERS: PCP Family Medicine; Visit Provider Internal Medicine
DX: E28.2 Polycystic ovarian syndrome (principal); N91.2 Amenorrhea, unspecified
CPT/HCPCS: 36415; 82670; 83001; 83002

== ENCOUNTER 2024-05-24 13:46 | Outpatient (CLI) | payer OTHER, SELFPAY ==
[2024-05-24 14:41] LABS: Free T4 Free Thyroxine 0.88 ng/dL (0.82-1.77); Thyroid Stimulating Hormone 2.74 uIU/mL (0.27-4.20)
== END 2024-05-24 13:47 | disposition home or self-care (01) ==
LOC: LAB 13:47
PROVIDERS: PCP Family Medicine; Visit Provider Internal Medicine
DX: E03.8 Other specified hypothyroidism (principal)
CPT/HCPCS: 36415; 84439; 84443

== ENCOUNTER 2024-08-23 12:39 | Outpatient (CLI) | payer OTHER, SELFPAY ==
[2024-08-23 13:28] LABS: Free T4 Free Thyroxine 0.86 ng/dL (0.82-1.77)
== END 2024-08-23 12:40 | disposition home or self-care (01) ==
LOC: LAB 12:43
PROVIDERS: PCP Family Medicine; Visit Provider Internal Medicine
DX: E03.8 Other specified hypothyroidism (principal)
CPT/HCPCS: 36415; 84439; 84443

== ENCOUNTER 2024-11-16 09:28 | Outpatient (CLI) | payer OTHER, SELFPAY ==
--- NOTE | 2024-11-16 09:30 | USR_ITS ---
PROCEDURE INFORMATION: Exam: US Duplex Lower Extremity Veins, Bilateral Exam date and time: 11/16/2024 9:53 AM Age: 29 years old Clinical indication: Varicose veins of lower extremities; Additional info: Vaircose veins TECHNIQUE: Imaging protocol: Real-time duplex ultrasound of the bilateral extremities with 2-D de jesus scale, color Doppler flow and spectral waveform analysis including responses to compression and other maneuvers (when performed) with image documentation. Complete exam focused on the lower extremity veins. COMPARISON: No relevant prior studies available. FINDINGS: Right deep veins: Unremarkable. The common femoral, femoral, proximal profunda femoral and popliteal veins are patent without thrombus. Normal Doppler waveforms. Normal compressibility and/or augmentation response. Right leg reflux exam: Time, left leg reflux CFV 2.19 seconds 1.5 seconds Popliteal vein 2 seconds SF JV AP 0.7 cm SSV JV depth 3.3 cm GSV distal 2 SFJ AP 0.53 cm. GSV proximal AP 0.47 cm GSV mid AP 0 0.53 GSV mid depth 1.99 cm GSV distal AP 0.47 cm GSV distal depth 1.4 cm SSV proximal AP 0.26 SSV proximal depth 0.65 cm SSV mid AP 0.32 cm SSV mid depth 0.78 cm Left deep veins: Unremarkable. The common femoral, femoral, proximal profunda femoral and popliteal veins are patent without thrombus. Normal Doppler waveforms. Normal compressibility and/or augmentation response. Left leg reflux exam CF V 1.5 seconds Mid SF JV AP 0.9 cm Mid SF IJV distance 3.3 cm GSV distal to SFJ AP 0.46 cm GSV proximal AP 0.52 cm GSV proximal depth 2.46 cm GSV mid AP 0.40 cm GS the mid depth 2.2 cm GSV distal AP 0.36 cm GSV distal depth 1.44 cm Superficial veins: Greater saphenous veins at the saphenofemoral junctions are patent bilaterally without thrombus. Soft tissues: Unremarkable. US/CV karen dup insucara [facility] [id number] IMPRESSION: No evidence of deep vein thrombosis. Doppler reflux measurements as described
== END 2024-11-16 09:29 | disposition home or self-care (01) ==
LOC: RAD 09:29
PROVIDERS: PCP Family Medicine; Visit Provider Internal Medicine Cardiovascular Disease
DX: I83.90 Asymptomatic varicose veins of unspecified lower extremity (principal)
CPT/HCPCS: 93970

== ENCOUNTER 2024-11-18 14:55 | Outpatient (CLI) | payer OTHER, SELFPAY | END 2024-11-18 14:56 | disposition home or self-care (01) | LOC: LAB 14:56 | PROVIDERS: PCP Family Medicine; Visit Provider Family Medicine | DX: R19.7 Diarrhea, unspecified (principal) | CPT/HCPCS: 80053; 80061; 81000; 81003; 83036; 84439; 84443; 85025; 87045; 87086; 87177; 87209; 87427; 87449 ==

== ENCOUNTER → 2025-01-17 11:58 | Outpatient (BNVA) | payer OTHER, SELFPAY | PROVIDERS: PCP Family Medicine; Visit Provider Family Medicine | DX: R30.0 Dysuria (principal); N39.0 Urinary tract infection, site not specified | CPT/HCPCS: 81000; 87077; 87086; 87184 ==

== ENCOUNTER → 2025-02-03 09:55 | Outpatient (BNVA) | payer OTHER, SELFPAY | PROVIDERS: PCP Family Medicine; Visit Provider Family Medicine | DX: R30.0 Dysuria (principal) | CPT/HCPCS: 87086 ==

== ENCOUNTER → 2025-02-23 13:00 | Outpatient (BNVA) | payer OTHER, SELFPAY | PROVIDERS: PCP Family Medicine; Visit Provider Family Medicine | DX: N39.0 Urinary tract infection, site not specified (principal) | CPT/HCPCS: 81000 ==

== ENCOUNTER → 2025-04-06 11:32 | Outpatient (BNVA) | payer OTHER, SELFPAY | PROVIDERS: PCP Family Medicine; Visit Provider Family Medicine | DX: Z51.81 Encounter for therapeutic drug level monitoring (principal); E03.9 Hypothyroidism, unspecified; R19.7 Diarrhea, unspecified | CPT/HCPCS: 85025; 87045; 87427; 87449 ==

== ENCOUNTER 2025-04-07 09:43 | Outpatient (CLI) | payer OTHER, SELFPAY ==
[2025-04-07 11:21] LABS: Hematocrit 39.1 % (36-47); Hemoglobin 12.10 g/dL (11.27-16.99); Mean Corpuscular HGB Conc 30.9 g/dL (30-55); Mean Corpuscular Hemoglobin 24.2 pg (27-33); Mean Corpuscular Volume 78.0 fl (85-98); Nucleated Red Blood Cells % 0 %; Platelet Count 457 10^3/cmm (157-399); Red Blood Count 5.01 10^6/uL (3.85-5.65); White Blood Count 9.77 10^3/uL (3.29-11.43)
[2025-04-07 11:50] LABS: Alanine Aminotransferase 38 U/L (0-33); Albumin Level 4.3 g/dL (3.5-5.2); Alkaline Phosphatase 62 U/L (35-105); Anion Gap 15.2 (5-19); Aspartate Amino Transferase 31 U/L (0-32); Blood Urea Nitrogen 7 mg/dL (6-20); Calcium 9.5 mg/dL (8.5-10.5); Carbon Dioxide 27 mmol/L (22-29); Chloride 102 mmol/L (98-107); Free T4 Free Thyroxine 1.01 ng/dL (0.82-1.77); Globulin 3.6 g/dL (1.3-4.6); Glucose 107 mg/dL (65-115); Osmolality Calculated 288 mOsm/kg (285-295); Potassium 4.2 mmol/L (3.5-5.1); Sodium 140 mmol/L (136-145); Thyroid Stimulating Hormone 1.71 uIU/mL (0.27-4.20); Total Protein 7.9 g/dL (6.6-8.7)
== END 2025-04-07 09:44 | disposition home or self-care (01) ==
PROVIDERS: PCP Family Medicine; Visit Provider Family Medicine
DX: Z51.81 Encounter for therapeutic drug level monitoring (principal); E03.9 Hypothyroidism, unspecified
CPT/HCPCS: 36415; 80053; 84439; 84443; 85025

== ENCOUNTER 2025-06-26 12:59 | Outpatient (CLI) | payer OTHER, SELFPAY ==
--- NOTE | 2025-06-26 13:09 | XR_ITS ---
WS: [email or web address] XR lumbar spine 6V w f/e [id number] REASON FOR EXAM: Lumbar radiculopathy FINDINGS: Relatively normal lumbar spine curvatures. No significant vertebral body compression deformity or focal lesion. Intervertebral disc spaces are intact and relatively well preserved. Mild narrowing of the L5-S1 disc space. No no spondylolysis. No significant neutral spondylolisthesis. No abnormal vertebral body movement on flexion and extension. XR/XR lumbar spine 6V w f/e [id number] IMPRESSION: Minimal degenerative spondylosis as above.
== END 2025-06-26 13:00 | disposition home or self-care (01) ==
PROVIDERS: PCP Family Medicine; Visit Provider Family Medicine
DX: M54.16 Radiculopathy, lumbar region (principal)
CPT/HCPCS: 72114

== ENCOUNTER 2025-07-11 15:50 | Outpatient (CLI) | payer OTHER, SELFPAY ==
--- NOTE | 2025-07-11 16:00 | MR_ITS ---
WS: [id number] MRI LUMBAR SPINE NONCONTRAST HISTORY: Lumbar radiculopathy right, numbness in groin COMPARISON: None available. TECHNIQUE: Sagittal and axial multisequence imaging is submitted. Normal lumbar alignment with no compression fractures or marrow edema. Disc desiccation at L4-5 and L5-S1 without narrowing. Conus terminates normally at L1-2 disc level. L1-L2: Normal. L2-L3: Mild facet arthritis. No significant stenosis. L3-L4: Mild disc bulging with moderate ligamentum flavum and facet arthritis. Small amount of fluid in the facet joints. Mild disc encroachment upon the subarticular recesses. Mild bilateral foraminal stenosis. There is a very small LEFT foraminal disc protrusion which is contacting the LEFT exiting L3 nerve root. L4-L5: Mild annular disc bulging with a moderate central disc protrusion which extends greater to the LEFT. Deformity of the ventral thecal sac and contact on the traversing L5 nerve roots, LEFT greater than RIGHT. Mild foraminal stenosis. L5-S1: Mild annular disc bulging with a broad-based RIGHT paracentral disc protrusion with slight contact on the RIGHT S1 nerve root. Mild facet arthritis and foraminal narrowing. Paravertebral soft tissues are negative. MR/MR lumbar spine wo con* [id number] IMPRESSION: 1. Moderate central disc protrusion at L4-5 extend slightly greater to the LEF T. Disc contacts the traversing L5 nerve roots, LEFT greater than RIGHT and mil d foraminal stenosis. 2. Broad-based RIGHT paracentral disc protrusion with slight contact on the RI GHT S1 nerve root. Mild facet arthritis and foraminal narrowing at L5-S1. 3. Mild foraminal stenosis at L3-4. Small LEFT foraminal disc protrusion with slight contact on the LEFT exiting L3 nerve root.
== END 2025-07-11 15:51 | disposition home or self-care (01) ==
LOC: RAD 15:50
PROVIDERS: PCP Family Medicine; Visit Provider Family Medicine
DX: M51.16 Intervertebral disc disorders with radiculopathy, lumbar region (principal); M47.816 Spondylosis without myelopathy or radiculopathy, lumbar region; M51.26 Other intervertebral disc displacement, lumbar region; M48.061 Spinal stenosis, lumbar region without neurogenic claudication; M47.897 Other spondylosis, lumbosacral region; M51.17 Intervertebral disc disorders with radiculopathy, lumbosacral region; M51.369 Other intervertebral disc degeneration, lumbar region without mention of lumbar back pain or lower extremity pain
CPT/HCPCS: 72148

== ENCOUNTER 2025-07-12 10:18 | Outpatient (CLI) | payer OTHER, SELFPAY ==
--- NOTE | 2025-07-12 10:21 | XR_ITS ---
WS: [email or web address] Exam: XR cervical spine 4-5V [id number] Date/Time of Exam: 07/12/2025 10:29 AM Reason For Exam: cervical radiculopathy left DLP: No fracture or malalignment. There is straightening of the C-spine. Disc spaces are preserved. Posterior elements are intact. Normal paraspinal soft tissues. The dens is intact. The bony neural foramina are patent bilaterally. XR/XR cervical spine 4-5V [id number] IMPRESSION: 1. Straightening. The C-spine is otherwise normal.
== END 2025-07-12 10:19 | disposition home or self-care (01) ==
LOC: RAD 10:18
PROVIDERS: PCP Family Medicine; Visit Provider Family Medicine
DX: M54.12 Radiculopathy, cervical region (principal); M48.02 Spinal stenosis, cervical region; R29.3 Abnormal posture
CPT/HCPCS: 72050

== ENCOUNTER 2025-08-08 15:15 | Outpatient (CLI) | payer OTHER, SELFPAY ==
--- NOTE | 2025-08-08 15:15 | MR_ITS ---
WS: [id number] MRI CERVICAL SPINE NONCONTRAST HISTORY: Cervical radiculopathy left COMPARISON: None available. Technique: Multiplanar, multisequence noncontrast imaging of the cervical spine. Significant artifact obscuring some of the sequences from patient's dental hardware. Mild straightening of the normal cervical lordosis. Abnormal signal in the intramedullary cervical cord centered at C5-6. Increased T2 signal extends over a length of 2.4 cm and is greater to the LEFT of midline. There does appear to be slight expansion of the cord. In the central portion of the lesion there may be an area of necrosis. Margins are poorly defined. No additional lesions in the cervical cord identified. Craniocervical junction, C1 and C2 relationship, odontoid process and soft tissues are normal. C2-C3: Normal. C3-C4: Normal. C4-C5: Normal. C5-C6: There is slight disc bulging and small osteophytes. C6-C7: Normal. C7-T1: Normal. Paraspinal soft tissue are normal. MR/MR cervical spin wo con* [id number] IMPRESSION: 1. 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 There may be slight necrosis centrally within the l esion. This mass is to the LEFT of midline and probably contacting a nerve root . Differential includes ependymoma, astrocytoma and demyelinating lesion. Recom mend follow-up MRI cervical spine with contrast at this time. Consider addition al MRI brain with and without contrast also. 2. No high-grade cervical stenosis.
== END 2025-08-08 15:16 | disposition home or self-care (01) ==
PROVIDERS: PCP Family Medicine; Visit Provider Family Medicine
DX: M50.122 Cervical disc disorder at C5-C6 level with radiculopathy (principal); M25.78 Osteophyte, vertebrae
CPT/HCPCS: 72141